=== PATIENT | male | born 1945 | race Caucasian/White ===

== ENCOUNTER 2017-02-19 10:42 | Emergency (ER) | payer OTHER, MEDICARE ==
[~2017-02-19] VITALS: Ht 180.3 cm; Wt 115.6 kg
[~2017-02-19 10:42] MED LIST: ALPRAZOLAM0.25 M2 PO; COLCRYS0.6 MG PO; CYMBALTA60 MG PO; FENOFIBRATE160 MG PO; GABAPENTIN100 MG PO; GLIMEPIRIDE4 MG PO; METFORMIN HCL1000 M1 PO; PRAVACHOL40 MG PO; TEKTURNA HCT PO; TRAMADOL HCL50 MG PO; VICODIN,LORT1 TABLET PO; ZOLPIDEM TARTRA10 MG PO
[2017-02-19] MEDS ORDERED: KEFLEX500 MG PO (14:03)
[2017-02-19 14:23] VITALS: BP 152/75
[2017-02-19] MEDS ORDERED: NORCO 5/3251 TABLET PO (15:22)
== END 2017-02-19 14:25 | disposition home or self-care (01) ==
LOC: EME 10:42
PROC: 0HQGXZZ Repair Left Hand Skin, External Approach (ICD-10-PCS; principal; 2017-02-19)
DX: S61.012A Laceration without foreign body of left thumb without damage to nail, initial encounter (principal); W31.2XXA Contact with powered woodworking and forming machines, initial encounter; I10 Essential (primary) hypertension; F41.9 Anxiety disorder, unspecified; E11.9 Type 2 diabetes mellitus without complications; F32.9 Major depressive disorder, single episode, unspecified; Z79.84 Long term (current) use of oral hypoglycemic drugs
CPT/HCPCS: 73140; 99281; 99284; S0020